=== PATIENT | female | born 1955 | race Caucasian/White ===

== ENCOUNTER 2016-08-14 08:53 | Day surgery (SDC) | payer OTHER ==
[~2016-08-14] VITALS: Ht 170.2 cm; Wt 94.8 kg
[~2016-08-14 08:53] MED LIST: 0.9% Sodium Chloride 1,000 ML IV SCH; AMLO5TAB2 PO; ATRV10T PO; AZTH50T PO; HYDR-656 PO; HYDR200T5 PO; Sodium Chloride LOK Flush 10 mL Syringe IV PRN; fentaNYL-PF 50 mCg/mL 2 mL Inj IVPUSH PRN
[2016-08-14] MEDS ORDERED: LISI10TA PO (09:26)
[2016-08-14] MEDS ORDERED: LEVO112T3 PO (09:26)
[2016-08-14] MEDS ORDERED: DESV50TA PO (09:26)
[2016-08-14 09:39] VITALS: BP 130/87; PULSE 72; RESP 16; O2SAT 95
[2016-08-14] MEDS ORDERED: 0.9% Sodium Chloride 1,000 ML IV ONE (10:32)
[2016-08-14 10:45] VITALS: BP 131/84; PULSE 76; RESP 16; O2SAT 95
[2016-08-14 10:59] VITALS: BP 122/73; PULSE 73; RESP 16; O2SAT 92
[2016-08-14 11:15] VITALS: BP 136/86; PULSE 64; RESP 16; O2SAT 98
--- NOTE | 2016-08-14 22:05 | ENDO ---
[address] [address] ENDOSCOPY PROCEDURE PATIENT: SHERLY CUMMINS : 1955 MR#: [id number] ADMIT: 08/14/2016 JOB ID: [id number] DATE OF PROCEDURE: 08/14/2016 PROCEDURE: Esophagogastroduodenoscopy. INDICATION: Patient with a history of gastric intestinal metaplasia. MISCELLANEOUS: Patient's ASA classification is II. Mallampati score is 2. MEDICATIONS: 1. Versed 6 mg. 2. Fentanyl 125 mcg, which was also used for the colonoscopy exam that followed. PROCEDURE DETAILS: After informed consent was obtained, patient was brought into the GI suite, where she was placed on oxygen via nasal cannula and monitored with continuous pulse oximeter, telemetry, and blood pressure monitoring. A time-out was performed. Then, she was placed in the left lateral decubitus position and medications were administered for sedation. A bite block was placed. The standard EGD scope was inserted through the bite block and advanced under direct visualization to the second portion of duodenum without difficulty. FINDINGS: 1. Normal appearing duodenal bulb, first and second portion. Multiple random biopsies were obtained. 2. Normal appearing pylorus and antrum. In the gastric body, the mucosa had an atrophic appearance. There was loss of normal rugal folds. Multiple random biopsies were obtained. Retroflexed views in the gastric body revealed a continuation of atrophic appearing mucosa extending into the fundus. The cardia was otherwise unremarkable. 3. The GE junction was at 39 cm and appeared regular. 4. Normal appearing esophagus. IMPRESSION: Atrophic gastric body mucosa. RECOMMENDATIONS: 1. Await biopsy results. 2. Proceed to colonoscopy. PROCEDURE PERFORMED: Colonoscopy. MISCELLANEOUS: Please see above for ASA classification, Mallampati score, and medications. INSTRUMENT USED: [id number]. PREPARATION QUALITY: Fair. PROCEDURE DETAILS: After after completion of the EGD exam, the patient was turned and then a digital rectal exam was performed which was unremarkable. The colonoscope was then inserted into the rectum and advanced under direct visualization to the cecum, which was identified by the presence of the ileocecal valve and appendiceal orifice. Once the cecum was reached, the colonoscope was withdrawn back into the rectum and mucosa and lumen were examined. In the rectum, retroflexion was performed. Following retroflexion, remaining air in the rectum was suctioned and procedure was completed. FINDINGS: 1. The ileocecal valve appeared prominent on one side. Multiple biopsies were obtained. On the opposite side of the ileocecal valve there was a diminutive polyp that was removed with cold biopsy forceps. 2. Retroflexed views in the rectum revealed moderate-sized internal hemorrhoids. IMPRESSION: 1. Prominent ileocecal valve. 2. Ileocecal valve polyp. 3. Internal hemorrhoids. RECOMMENDATIONS: 1. Await polyp pathology results and biopsy results. 2. Follow up in GI clinic. 3. Repeat colonoscopy pending polyp pathology results. COMPLICATIONS: None. ESTIMATED BLOOD LOSS: Less than 5 mL.
--- NOTE | 2016-08-17 17:27 | PATH ---
SURGICAL PATHOLOGY Attending Physician:Felix Castro CASE STATUS: Signed Out PATIENT NAME: SHERLY CUMMINS PID: [id number] : 1955 DATE COLLECTED:08/14/2016 16:48 SPECIMEN: 1: Duodenum, Biopsy 2: Stomach, Antrum, Biopsy 3: Gastric, Biopsy 4: Small Intestine/Bowel, Biopsy 5: Small Intestine/Bowel, Biopsy CLINICAL HISTORY: 1. DUODENUM BXS 2. ANTRAL BXS 3. GASTRIC BODY BXS R/O H.PYLORI 4. PROMINET ILEOCECAL VALVE 5. IIEOCECAL VALVE POLYP FINAL DIAGNOSIS: 1. Duodenum, Biopsies: Duodenal mucosa with no diagnostic abnormality. Negative for active inflammation, features of sprue, dysplasia, and malignancy. 2. Antral Biopsies: Gastric antral-type mucosa with moderate focal chronic gastritis. Negative for Helicobacter organisms by immunohistochemistry. Negative for intestinal metaplasia. Negative for dysplasia and malignancy. 3. Gastric Body Biopsies, Rule Out H. Pylori: Gastric biopsy with chronic gastritis, intestinal metaplasia (in all 4 fragments), parietal cell atrophy, and pseudopyloric gland metaplasia. Negative for dysplasia or malignancy. Linear and micronodular neuroendocrine cell hyperplasia highlighted by chromogranin immunohistochemical stain. No evidence of neuroendocrine cell dysplasia or carcinoid tumor identified. Negative for Helicobacter organisms by immunohistochemistry. See comment. 4. Prominent Ileocecal Valve, biopsies: Enteric-type mucosa with focal mild active enteritis. Negative for dysplasia and malignancy. A single fragment of benign fibroadipose tissue is identified. Deeper levels examined. 5. Ileocecal Valve Polyp, biopsy: Tubular adenoma. ICD10:R10.13 NOTE: Part 3: The features in this biopsy raise the consideration of autoimmune gastritis. Correlation with serology (anti-intrinsic factor and antiparietal cell antibodies) is recommended if clinically indicated. As part of routine air quality instrument specialist, Dr. Perales has also reviewed the case and agrees with the above interpretation. GROSS DESCRIPTION: Received five formalin-filled containers, each labeled with the patient's name. 1. In a container labeled "duodenum" are five portions of tissue which aggregate to 0.6 x 0.3 x 0.2 cm. The specimen is entirely submitted in cassette 1A. 2. In a container labeled "antral" are three tiny portions of tissue which aggregate to 0.2 x 0.2 x 0.2 cm. The specimen is entirely submitted in cassette 2A. 3. In a container labeled "gastric body" are four portions of tissue which aggregate to 0.4 x 0.4 x 0.2 cm. The specimen is entirely submitted in cassette 3A. 4. These specimen is labeled "prominent IC valve" and consists of three tiny portions of tissue which aggregate to 0.2 x 0.2 x 0.2 cm. The specimen is entirely submitted in cassette 4A. 5. In a container labeled "ileocecal valve polyp", specimen consists of a 0.2 x 0.2 x 0.2 cm portion of tissue which is entirely submitted in cassette 5A. ([facility]:[id number]) MICRO DESCRIPTION: Part 2: An immunohistochemical stain was performed to evaluate for H. pylori microorganisms and is negative. The control stain shows appropriate reactivity. Part 3: An immunohistochemical stain was performed to evaluate for H. pylori organisms and is negative. The control stain shows appropriate reactivity. A chromogranin stain was used to highlight the neuroendocrine cells. The control stain shows appropriate reactivity. * This test was developed and its performance characteristics determined by [facility]. It has not been cleared or approved by the [place].S. Food and Drug Administration. The FDA has determined that such clearance or approval is not necessary. This test is used for clinical purposes. It should not be regarded as investigational or for research. ICD-9 CODES: CPT CODES: 1: 92659 2: 65646, 94849 3: 75582, 76293, 40443 4: 00732 5: 20568 Electronically Signed Out Donny Lopez MD [facility] Pathology [facility] [address], [place] [address] Technical component performed at [facility], [address], [place], [address]
== END 2016-08-14 23:59 | disposition home or self-care (01) ==
LOC: END 08:53
PROVIDERS: ATTEND Internal Medicine Gastroenterology
DX: Z12.11 Encounter for screening for malignant neoplasm of colon (principal); D12.2 Benign neoplasm of ascending colon; K64.8 Other hemorrhoids; K52.89 Other specified noninfective gastroenteritis and colitis; K31.89 Other diseases of stomach and duodenum; K29.50 Unspecified chronic gastritis without bleeding; R10.13 Epigastric pain; I10 Essential (primary) hypertension; E78.5 Hyperlipidemia, unspecified; E11.9 Type 2 diabetes mellitus without complications; K75.4 Autoimmune hepatitis; M32.9 Systemic lupus erythematosus, unspecified; F32.9 Major depressive disorder, single episode, unspecified; M79.7 Fibromyalgia; K76.0 Fatty (change of) liver, not elsewhere classified; G47.33 Obstructive sleep apnea (adult) (pediatric); M19.90 Unspecified osteoarthritis, unspecified site
CPT/HCPCS: 43239; 45380; 99153; G0500; J2250; J3010; J7030